=== PATIENT | female | born 1990 | race Caucasian/White ===

== ENCOUNTER 2020-12-14 18:18 | Emergency (ER) | payer SELFPAY ==
[~2020-12-14] VITALS: Ht 165.1 cm; Wt 88.5 kg
[2020-12-14 18:25] VITALS: BP_SYST 133
[2020-12-14] MEDS ORDERED: IBUPROFEN 800 MG TABLET PO ONE (19:00)
[2020-12-14 19:36] LABS: STREPTOCOCCUS A SCREEN (RAPID) NEGATIVE (NEGATIVE)
[2020-12-14 19:43] LABS: INFLUENZA A&B ANTIGEN SCREEN NEGATIVE FOR A & B (NEGATIVE)
[2020-12-14] MEDS ORDERED: IBUP-1969 PO (19:59)
[2020-12-14] MEDS ORDERED: DEXAMETHASONE SOD PHOSPHATE 10 MG/ML VIAL IM ONE (20:00)
[2020-12-14] MEDS ORDERED: PENI250T2 PO (20:10)
[2020-12-14 20:46] VITALS: BP_SYST 123
== END 2020-12-14 20:46 | disposition home or self-care (01) ==
LOC: SED 18:18 → EDBD 18:18 → SED 20:46
DX: J02.9 Acute pharyngitis, unspecified (principal); Z20.822 Contact with and (suspected) exposure to COVID-19
CPT/HCPCS: 36415; 81025; 86403; 86710; 87081; 99283

== ENCOUNTER 2021-03-15 11:36 | Emergency (ER) | payer MEDICAID, OTHER ==
[~2021-03-15] VITALS: Ht 165.1 cm; Wt 83.9 kg
[~2021-03-15 11:36] MED LIST: IBUP-1969 PO; PENI250T2 PO
[2021-03-15 11:44] VITALS: BP_SYST 137
[2021-03-15] MEDS ORDERED: KETAMINE 30 MG/3 ML SYRINGE IM ONE (12:15)
[2021-03-15] MEDS ORDERED: MORPHINE 4 MG INJ. 4 MG/ML VIAL IM ONE (12:15)
[2021-03-15] MEDS ORDERED: NAPR-688 PO (13:39)
[2021-03-15] MEDS ORDERED: HYDR-3917 PO (13:39)
[2021-03-15 13:53] VITALS: BP_SYST 137
== END 2021-03-15 13:53 | disposition home or self-care (01) ==
LOC: SED 11:36
DX: M54.5 Low back pain (principal); Z79.899 Other long term (current) drug therapy
CPT/HCPCS: 96372; 99284; J2270

== ENCOUNTER 2024-02-03 15:11 | Emergency (ER) | payer MEDICAID ==
[~2024-02-03] VITALS: Ht 165.1 cm; Wt 92.5 kg
[2024-02-03 15:11] VITALS: BP_SYST 133; PULSE 95; RESP 20; TEMP 97.1; O2SAT 95
[~2024-02-03 15:11] MED LIST changes: +HYDR-3917 PO; +NAPR-688 PO
[2024-02-03 16:30] LABS: INFLUENZA TYPE A Negative (NEGATIVE); INFLUENZA TYPE B NEGATIVE (NEGATIVE)
[2024-02-03] MEDS ORDERED: PRED20TA PO (16:47)
== END 2024-02-03 17:32 | disposition home or self-care (01) ==
LOC: SED 15:11
DX: J40 Bronchitis, not specified as acute or chronic (principal); Z20.822 Contact with and (suspected) exposure to COVID-19; Z98.890 Other specified postprocedural states; Z79.899 Other long term (current) drug therapy; Z79.2 Long term (current) use of antibiotics
CPT/HCPCS: 36415; 71045; 99284